=== PATIENT | female | born 1970 | race Caucasian/White ===

== ENCOUNTER 2024-02-08 12:10 | Inpatient (IN) | payer MEDICAID, SELFPAY ==
[2024-02-08 12:13] VITALS: BP 126/81; PULSE 93; RESP 16; TEMP 36.6; O2SAT 98; BMI 25.7
[2024-02-08 13:53] LABS: Absolute Lymphocyte Count 1.08 X10^3/uL (0.83-4.51); Absolute Neutrophil Count 3.7 X10^3/uL (2.0-7.7); Basophil# 0.05 X10^3/uL; Basophil% 0.9 % (0-1); Eosinophil# 0.04 X10^3/uL; Eosinophils% 0.7 % (0-5); Hematocrit 37.5 % (37-47); Hemoglobin 12.6 g/dL (12.0-15.0); Lymphocyte # 1.08 X10^3/ul (0.83-4.51); Lymphocyte % 20.1 % (19-41); Mean Corp Hgb Conc 33.6 g/dL (32-36); Mean Corpuscular Hgb 32.9 pg (27.0-32.0); Mean Corpuscular Volume 97.9 fL (81-99); Mean Platelet Vol. 10.7 fl (6.2-12.0); Monocyte# 0.52 X10^3/uL; Monocyte% 9.7 % (0-10); NRBC Flagged by Analyzer 0 % (0-5); Neutrophil # 3.67 X10^3/uL (2.7-7.7); Neutrophil % 68.2 % (47-70); Platelet Count 124 K/mm3 (150-450); RBC Distribution Width CV 13.6 % (11.6-14.6); RBC Distribution Width SD 48.5 fl (35.1-43.9); Red Blood Count 3.83 M/mm3 (4.2-5.4); White Blood Count 5.4 K/mm3 (4.4-11.0)
[2024-02-08 13:58] LABS: Internal QC Validated? YES +Cl - CLEAR BKGD; Pregnancy, Serum, hCG Quali. NEGATIVE Negative
[2024-02-08 14:11] LABS: Amphetamine Urine VISTA NEGATIVE (<1000 ng/mL); Barbiturate Urine VISTA NEGATIVE (< 200 ng/mL); Benzodiazepine Urine VISTA POSITIVE (< 200 ng/mL); Cocaine Urine VISTA NEGATIVE (< 300 ng/mL); Ecstacy Urine VISTA NEGATIVE (< 500 ng/mL); Methadone Urine VISTA NEGATIVE (< 300 ng/mL); PCP Urine VISTA NEGATIVE (< 25 ng/mL); THC Urine VISTA NEGATIVE (< 50 ng/mL); Vista UDS pH Range 6
[2024-02-08 14:16] LABS: ALB/GLOB Ratio 0.7 RATIO (0.9-2.4); AST(SGOT) 129 U/L (15-37); Alanine Aminotransfer ALT/SGPT 51 U/L (13-56); Albumin, Serum 3.4 g/dL (3.2-5.0); Alkaline Phosphatase 313 U/L (45-117); Anion Gap 10 (5-15); BUN 6 mg/dL (7-18); BUN/Creat Ratio 8.6 RATIO (10-20); Chloride 98 mmol/L (98-107); EST Glomerular Filtration Rate 93 mL/min (>60); Est Glom Filt Rate - Afr Amer 112 mL/min (>60); Globulin 4.8 g/dL (2.2-4.2); Glucose 108 mg/dL (74-106); Potassium 3.2 mmol/L (3.5-5.1); Protein, Total 8.2 g/dL (6.4-8.2); Sodium Level 134 mmol/L (136-145)
--- NOTE | 2024-02-08 14:33 | EDS_ITS ---
HPI History of Present Illness Chief Complaint: Substance Abuse Detail of Chief Complaint: Patient was accompanied from underwriting account representative from [facility] for alcohol Informant: patient and other Onset/Context/Timing Onset: Month(s) Context: Sudden Onset Timing: Continuous Quality: Patient is an alcoholic. She drinks a pint to half a gallon of vodka a day Location: Not applicable Current Severity: Severe Maximum Severity: Severe Worsened by: Nothing specific Relieved by: Nothing Associated Symptoms Associated Symptoms: Positive for no; Negative for vomiting*, diarrhea*, fever*, rash*, seizure, tremor, palpatations, change in mental status, trauma, sex for drugs* or *HIV Risk Factors:Consider testing if last test > 6 months Narrative Narrative: Patient is a 53-year-old woman. She is an alcoholic. She was recently admitted to the [facility] detox program. She did not follow-up. She was brought in by a underwriting account representative from [facility]. She is drinking 1 pint to half a gallon of vodka per day. She drank prior to arrival. She states she needs help. There is no history of trauma. Denies headache, visual, ocular auditory sym ptoms. She denies cardiac respiratory symptoms. Denies abdominal pain, black or maroon-colored stool. She denies vomiting. She denies history of pancreatitis. She denies urologic symptoms. Prior similar symptoms: Yes Recent Illness/Hospitalization: Yes PFSH PFSH Medical History Anxiety Alcohol abuse Allergy/AdvReac Type Severity Reaction Status Date / Time iodine Allergy PT UNSURE Verified 02/08/24 12:13 OF REACTION Social History Smoking Status: Current every day smoker tobacco type: cigarettes ROS ROS ED Constitutional Constitutional ED: Denies chills, fever(s), subjective or sweats Eyes Eyes: Denies blurry vision or change in vision ENT ENT ED: Denies ear pain, rhinorrhea or sore throat Cardiovascular Cardiovascular: Denies chest pain or palpitations Respiratory/Chest Respiratory/Chest: Denies cough, dyspnea or dyspnea on exertion Gastrointestinal Gastrointestinal: Denies abdominal pain, constipation, diarrhea, melena or vomiting Genitourinary Genitourinary ED: Denies dysuria or urinary frequency Musculoskeletal Musculoskeletal: Denies arthralgias, back pain, myalgias or neck pain Integumentary Denies abscess, Abrasions or rash Neurologic Neurologic: Denies headache(s), paresthesias or weakness Psychiatric Psychiatric: Reports anxiety Endocrine Endocrinology: Denies cold intolerance or heat intolerance Hematologic/Lymphatic Hematologic/Lymphatic: Denies easy bleeding or easy bruising EXAM Physical Exam Const Vital Signs: 02/08/24 12:13 Temperature 97.8 F Temperature Source Temporal Pulse Rate 93 Respiratory Rate 16 Blood Pressure 126/81 H Blood Pressure Mean 96 Pulse Ox 98 Oxygen Delivery Method Room Air Positive well nourished and well developed General Appearance ED: well developed and NAD; Negative for pallor HEENT Reports moist mucous membranes HEENT Narrative: Head is atraumatic normocephalic. Ears normal. Nares patent. Posterior pharynx is normal. atraumatic Eyes PERRL and EOMs intact bilaterally General Eye ED: Negative for pale conjunctiva or scleral icterus Neck no lymphadenopathy, supple and no JVD Lymph Lymphatic: no lymphadenopathy noted and lymphadenopathy Chest Wall inspection of chest normal and palpation of chest normal Resp normal respiratory effort and clear to auscultation bilaterally Cardio regular rate, regular rhythm, S1 normal heart sound, S2 normal heart sound and no murmurs GI soft to palpation, non-tender, non-distended and no masses Back/Spine no CVA tenderness Extremity Extremity Narrative: Lower extremity exam is unremarkable. There is no neurovascular mice. General Extremety ED: Negative for edema or tenderness General Extremity: Negative for edema Neuro oriented x3, CN's II-XII intact bilaterally and no sensory deficits noted Neuro Narrative: There is no dysmetria. There is no clonus at the ankles. There is no Babinski sign noted right or left. Maribel Coma Scale: document GCS findings Spontaneous Obeys Commands Oriented 15 Sensorium / Orientation: alert Motor Exam: strength 5/5 throughout Psych mental status grossly normal and thought process normal Psych Narrative: Patient became tearful when asked if she had been in a detox program before. She informing that she was at [facility] 2 weeks ago. Skin General Skin Exam: Negative for jaundice or pallor Lesions: no lesions Rashes: no rashes MDM MDM MDM Narrative Medical decision making narrative: Patient is an alcoholic with dependency. Will initiate ED addiction medicine protocol. Will assess CBC for H&H to rule out anemia. Competence metabolic panel to assess electrolytes, glucose, renal function and liver enzymes. Urine tox and test. Lab Data Attestation: I reviewed the patient's lab results. Lab results narrative: CBC was unremarkable. Competence metabolic panel Veals mild hyponatremia 134. Glucose is slightly elevated 108. AST is elevated 129 consistent with alcoholism. Total bili slight elevated 1.4. Tox is positive for benzodiazepines. Alcohol is 263. Labs: Laboratory Results - last 24 hr 02/08/24 02/08/24 13:42 13:43 WBC 5.4 RBC 3.83 L Hgb 12.6 Hct 37.5 MCV 97.9 MCH 32.9 H MCHC 33.6 RDW Std Deviation 48.5 H RDW Coeff of Araseli 13.6 Plt Count 124 L MPV 10.7 Immature Gran % (Auto) 0.400 Neut % (Auto) 68.2 Lymph % (Auto) 20.1 Rapides % (Auto) 9.7 Eos % (Auto) 0.7 Baso % (Auto) 0.9 Absolute Neuts (auto) 3.7 Absolute Lymphs (auto) 1.08 Nucleated RBC % 0 Sodium 134 L Potassium 3.2 L Chloride 98 Carbon Dioxide 26.0 Anion Gap 10 BUN 6 L Creatinine 0.70 Estim Creat Clear Calc 80.70 Est GFR (MDRD) Af Amer 112 Est GFR (MDRD) Non-Af 93 BUN/Creatinine Ratio 8.6 L Glucose 108 H Calcium 9.0 Total Bilirubin 1.40 H AST 129 H ALT 51 Alkaline Phosphatase 313 H Total Protein 8.2 Albumin 3.4 Globulin 4.8 H Albumin/Globulin Ratio 0.7 L Serum , Qual NEGATIVE Urine Opiates Screen NEGATIVE Urine Methadone Screen NEGATIVE Ur Barbiturates Screen NEGATIVE Ur Phencyclidine Scrn NEGATIVE Ur Amphetamines Screen NEGATIVE MDMA (Ecstasy) Screen NEGATIVE U Benzodiazepines Scrn POSITIVE H Urine Cocaine Screen NEGATIVE U Cannabinoids Screen NEGATIVE Ur Drug Screen Comment Ethyl Alcohol 263.0 Management Discussion w/another healthcare provider: Hospitalist (Dr. Howe was made aware of patient's history, physical laboratory results. She will see patient in the emergency department.) Discharge Plan Triage Chief Complaint: Substance Abuse ED Provider: Les Wagner Dx/Rx/DC Orders Clinical Impression: Alcohol dependence with acute alcoholic intoxication without complication, Elevated bilirubin, Elevated SGOT (AST) Primary Care Provider: CATRACHO FIGUEROA Referrals: CATRACHO FIGUEROA [Other] Print Language: Liberian Disposition Disposition: Acute Care Hospital [facility]
[2024-02-08 14:58] VITALS: BP 117/73; PULSE 85; RESP 12; TEMP 36.9; O2SAT 96
--- NOTE | 2024-02-08 15:05 | HP.PCM.HOS_ITS ---
HPI - General General Date of Admission: 02/08/24 Date of Service: 02/08/24 Chief Complaint: etoh detox HPI Narrative RON GOMEZ, is a 53 F with a portal vein thrombosis noncompliant with her Eliquis, GERD, tobacco use, hypertension, alcohol abuse presented to [facility] ED 02/08/2024 with a [facility] sales representative adding machines for alcohol detox. Hospitalist contacted for admission. She was in [facility] for detox and got out 2 weeks ago but started drinking again anywhere from a pint to a half a gallon of vodka a day and has been drinking since college but is drinking more heavily the past 10 to 12 years. Reports she has a lot of life stressors but is hopeful to go to [facility] and get sober. Does report she was diagnosed with a portal vein thrombosis in September and is supposed to be on Eliquis however due to bruising and a nosebleed she stopped taking this. Patient hesitant to be put on phenobarbital as she feels it will make her tired but also said she does not like how Librium makes her feel. Discussed CIWA with scoring threshold for Ativan and symptom driven coverage and she was agreeable. Patient last drink this morning and had an alcohol level 263 while in the ED, has not yet began to feel withdrawal symptoms. Had no focal complaints at this time other than feeling tired. Denies any other substance use, smokes 8 to 10 cigarettes a day but does not want a nicotine patch as it made her feel jittery before and did not want nicotine gum either. PFSH Medical History Anxiety Alcohol abuse Home Medications ?Medication ?Instructions ?Recorded ?Last Taken ?Type apixaban 5 mg tablet (Eliquis) 5 mg PO BID 02/08/24 Unknown History citalopram 20 mg tablet 20 mg PO DAILY 02/08/24 Unknown History fenofibrate nanocrystallized 145 145 mg PO DAILY 02/08/24 Unknown History mg tablet folic acid 1 mg tablet 1 mg PO DAILY 02/08/24 Unknown History gabapentin 100 mg capsule 100 mg PO QHS PRN PRN sleep 02/08/24 Unknown History lisinopril 10 mg tablet 10 mg PO DAILY 02/08/24 Unknown History omeprazole 40 mg capsule,delayed 40 mg PO DAILY 02/08/24 Unknown History release Allergy/AdvReac Type Severity Reaction Status Date / Time iodine Allergy PT UNSURE Verified 02/08/24 12:13 OF REACTION Social History Smoking Status: Current every day smoker tobacco type: cigarettes ROS ROS Narrative General: Denies fever/chills HENT: Denies headache, denies stuffy nose, denies sore throat EYES: Denies changes in vision Resp: Denies cough, denies shortness of breath Cardiac: Denies chest pain GI: Denies abdominal pain, denies changes in bowel, denies nausea/vomiting : Denies changes in urination Extremity: Denies swelling MSK: Denies weakness Neuro: Denies any numbness/tingling Heme: Denies any bleeding or bruising Skin: Denies rashes Psychiatric: Feels tired, has had a lot of stressors recently as well Vital Signs Vital Signs Vital Signs: 02/08/24 12:13 02/08/24 14:58 Temperature 97.8 F 98.4 F Temperature Source Temporal Pulse Rate 93 85 Respiratory Rate 16 12 Blood Pressure 126/81 H 117/73 Blood Pressure Mean 96 87 Pulse Ox 98 96 Oxygen Delivery Method Room Air Weight Weight: 63.957 kg Body Mass Index (BMI) 25.7 Physical Exam Narrative General: Alert, oriented, no apparent distress HEENT: Atraumatic, normocephalic Eyes: Anicteric, normal conjunctiva, extraocular movements grossly intact Neck: Supple Respiratory: Clear to auscultation bilaterally, normal respiratory effort Cardiovascular: Regular rate and rhythm GI: Soft, nontender, nondistended Extremities: No edema Musculoskeletal: Moving all extremities Neuro: No overt focal neurological deficits Skin: No rashes appreciated Psych: Superficially cooperative Results Lab / Micro Data 02/08/24 13:42 02/08/24 13:42 Labs: Laboratory Results - last 24 hr 02/08/24 13:42: WBC 5.4, RBC 3.83 L, Hgb 12.6, Hct 37.5, MCV 97.9, MCH 32.9 H, MCHC 33.6, RDW Std Deviation 48.5 H, RDW Coeff of Araseli 13.6, Plt Count 124 L, MPV 10.7, Immature Gran % (Auto) 0.400, Neut % (Auto) 68.2, Lymph % (Auto) 20.1, Real % (Auto) 9.7, Eos % (Auto) 0.7, Baso % (Auto) 0.9, Absolute Neuts (auto) 3.7, Absolute Lymphs (auto) 1.08, Nucleated RBC % 0, Sodium 134 L, Potassium 3.2 L, Chloride 98, Carbon Dioxide 26.0, Anion Gap 10, BUN 6 L, Creatinine 0.70, Estim Creat Clear Calc 80.70, Est GFR (MDRD) Af Amer 112, Est GFR (MDRD) Non-Af 93, BUN/Creatinine Ratio 8.6 L, Glucose 108 H, Calcium 9.0, Total Bilirubin 1.40 H, AST 129 H, ALT 51, Alkaline Phosphatase 313 H, Total Protein 8.2, Albumin 3.4, Globulin 4.8 H, Albumin/Globulin Ratio 0.7 L, Ethyl Alcohol 263.0 02/08/24 13:43: Serum , Qual NEGATIVE, Urine Opiates Screen NEGATIVE, Urine Methadone Screen NEGATIVE, Ur Barbiturates Screen NEGATIVE, Ur Phencyclidine Scrn NEGATIVE, Ur Amphetamines Screen NEGATIVE, MDMA (Ecstasy) Screen NEGATIVE, U Benzodiazepines Scrn POSITIVE H, Urine Cocaine Screen NEGATIVE, U Cannabinoids Screen NEGATIVE, Ur Drug Screen Comment Assessment & Plan Assessment/Plan (1) Alcohol dependence with acute alcoholic intoxication without complication: (2) Portal vein thrombosis: PLAN: Plan #Alcohol use disorder - We will begin CIWA every 4 for 24 hours, then every 6 for 24 hours, then every 12 until discharge -Patient hesitant to take phenobarb taper she reports she thinks it make her too tired, also refused Librium, was agreeable to Ativan with as needed coverage. This is reasonable given she went through detox 2 weeks ago and has only been drinking over the past week and a half or so. Currently scheduled moving forward if needed -Gabapentin 300 mg every 8 as needed -Will start Bentyl and hydroxyzine as needed as well as loperamide as needed -Trazodone 100 mg p.o. nightly as needed sleep -Begin thiamine and folic acid supplementation -Zofran as needed for nausea -Case management consult to assist with discharge planning -EtOH 263, UDS positive for benzos but patient denies any substance use other than alcohol # History of portal vein thrombosis -Diagnosed in September -Stopping Eliquis week ago as she did not like the bruising -Discussed that this will be restarted #Tobacco use -Advise cessation -Refused nicotine replacement #GERD -Continue PPI # Hypokalemia -Replace -Check in the a.m. # Elevated liver enzymes -Likely secondary due to alcohol -Advise cessation -Repeat in the a.m. #DVT ppx: Linn Howe MD Time spent in the patient's overall evaluation,decision-making process, review of diagnostic data, adjustment of management, discussion with other providers, nursing nursing and ancillary staff involved in patient's care documentation, 38 minutes Charges/Coding Visit Charges Inpatient E&M: 97349 Init Hosp L2
[2024-02-08 16:02] VITALS: BMI 26.5
[2024-02-08 16:19] LABS: Internal QC Validated? YES +Cl - CLEAR BKGD; Pregnancy, Urine Negative Negative
[2024-02-08 16:51] VITALS: BP 125/78; PULSE 86; RESP 18; TEMP 36.8; O2SAT 98
--- NOTE | 2024-02-08 17:27 | NURSING ---
Pt very Agitated with her Saline Lock. Pt wants it out b/c it hurts. Pt was standing at her doorway demanding the legal secretary receptionist to take it out. This RN into see pt and educated importance of why we should leave the Saline Lock in. take it out, I've never had a seizure with detox and I don't need it Pt Stated she would rather get stuck again if needed. Pt asking What medication I'm I getting for this? referring to her alcohol withdrawal. The Doctor said she was going to order something but not phenobarbital as it makes me sleepy so what did she order. Pt informed that Ativan po ordered. I don't like to take meds. Pt at first did not want Ativan but then agreed. Pt started crying and stated I don't want to be here. I'm only here so I can go to [facility]. Pt stated she was just in detox at [facility] 2 weeks ago and already started drinking again. Pt also talked about her room mate and how she has only lived at her house since this past December but I don't think she wants me there anymore. Crying began again. Pt talked about how she does not take and has not taken her Antidepressent in a long time.
[2024-02-08] MEDS: LORazepam 1 MG Tablet PO ×2 (17:54→21:14)
[2024-02-08] MEDS: Potassium Chloride Oral Tablet 20 MEQ 40 MEQ PO (17:54)
[2024-02-08] MEDS: APIXABAN 5 MG TABLET PO (21:14)
[2024-02-08] MEDS: Gabapentin 300 MG Capsule PO (21:14)
[2024-02-08 21:15] VITALS: BP 131/73; PULSE 86; RESP 17; TEMP 36.6; O2SAT 95
[2024-02-09 02:31] VITALS: BP 130/75; PULSE 85; RESP 16; TEMP 36.6; O2SAT 96
[2024-02-09] MEDS: Acetaminophen 325 MG Tablet 650 MG PO ×2 (02:39→21:27)
[2024-02-09 06:37] VITALS: BP 123/71; PULSE 69; RESP 16; TEMP 36.8; O2SAT 97
[2024-02-09 09:01] VITALS: BP 148/89; PULSE 72; RESP 18; TEMP 36.6; O2SAT 98
[2024-02-09] MEDS: APIXABAN 5 MG TABLET PO ×2 (09:07→21:28)
[2024-02-09] MEDS: Thiamine Hydrochloride 100 MG Tablet PO (09:11)
[2024-02-09] MEDS: Pantoprazole Sodium 40 MG Tablet PO (09:11)
[2024-02-09] MEDS: LORazepam 1 MG Tablet PO (09:11)
[2024-02-09] MEDS: Lisinopril 10 MG Tablet PO (09:11)
[2024-02-09] MEDS: Folic Acid 1 MG Tablet PO (09:11)
[2024-02-09 10:54] LABS: ALB/GLOB Ratio 0.7 RATIO (0.9-2.4); AST(SGOT) 113 U/L (15-37); Alanine Aminotransfer ALT/SGPT 43 U/L (13-56); Albumin, Serum 2.9 g/dL (3.2-5.0); Alkaline Phosphatase 262 U/L (45-117); Anion Gap 9 (5-15); BUN 5 mg/dL (7-18); BUN/Creat Ratio 7.8 RATIO (10-20); Calcium,Total 9.4 mg/dL (8.5-10.1); Chloride 100 mmol/L (98-107); Creatinine, Serum 0.64 mg/dL (0.55-1.02); EST Glomerular Filtration Rate 103 mL/min (>60); Est Glom Filt Rate - Afr Amer 125 mL/min (>60); Globulin 4.4 g/dL (2.2-4.2); Glucose 86 mg/dL (74-106); Magnesium 1.6 mg/dL (1.6-2.6); Potassium 3.8 mmol/L (3.5-5.1); Protein, Total 7.3 g/dL (6.4-8.2); Sodium Level 137 mmol/L (136-145)
--- NOTE | 2024-02-09 11:18 | PCM.PN.HOSP ---
Subjective Subjective Doing well, no issues overnight, CIWA score 4 Objective Data Objective Data Vital Signs: Vital Signs Temp Pulse Resp BP Pulse Ox O2 Del Method 97.9 F 72 18 148/89 H 98 Room Air 02/09/24 09:01 02/09/24 09:01 02/09/24 09:01 02/09/24 09:01 02/09/24 09:01 02/09/24 09:01 Oxygen Delivery Method Room Air Weight: 144 lb 3 oz Body Mass Index (BMI) 26.5 Intake & Output: Intake and Output for Last 24 Hours 02/08/24 02/09/24 02/10/24 03:59 03:59 03:59 Intake Total 400 / 400 Balance 400 / 400 Lab / Micro Data 02/08/24 13:42 02/09/24 06:10 Labs: Laboratory Results - last 24 hr 02/08/24 13:42: WBC 5.4, RBC 3.83 L, Hgb 12.6, Hct 37.5, MCV 97.9, MCH 32.9 H, MCHC 33.6, RDW Std Deviation 48.5 H, RDW Coeff of Araseli 13.6, Plt Count 124 L, MPV 10.7, Immature Gran % (Auto) 0.400, Neut % (Auto) 68.2, Lymph % (Auto) 20.1, Stewart % (Auto) 9.7, Eos % (Auto) 0.7, Baso % (Auto) 0.9, Absolute Neuts (auto) 3.7, Absolute Lymphs (auto) 1.08, Nucleated RBC % 0, Sodium 134 L, Potassium 3.2 L, Chloride 98, Carbon Dioxide 26.0, Anion Gap 10, BUN 6 L, Creatinine 0.70, Estim Creat Clear Calc 80.70, Est GFR (MDRD) Af Amer 112, Est GFR (MDRD) Non-Af 93, BUN/Creatinine Ratio 8.6 L, Glucose 108 H, Calcium 9.0, Total Bilirubin 1.40 H, AST 129 H, ALT 51, Alkaline Phosphatase 313 H, Total Protein 8.2, Albumin 3.4, Globulin 4.8 H, Albumin/Globulin Ratio 0.7 L, Ethyl Alcohol 263.0 02/08/24 13:43: Serum , Qual NEGATIVE, Urine Opiates Screen NEGATIVE, Urine Methadone Screen NEGATIVE, Ur Barbiturates Screen NEGATIVE, Ur Phencyclidine Scrn NEGATIVE, Ur Amphetamines Screen NEGATIVE, MDMA (Ecstasy) Screen NEGATIVE, U Benzodiazepines Scrn POSITIVE H, Urine Cocaine Screen NEGATIVE, U Cannabinoids Screen NEGATIVE, Ur Drug Screen Comment 02/08/24 15:55: Urine Test Negative 02/09/24 06:10: Sodium 137, Potassium 3.8, Chloride 100, Carbon Dioxide 28.0, Anion Gap 9, BUN 5 L, Creatinine 0.64, Estim Creat Clear Calc 87.00, Est GFR (MDRD) Af Amer 125, Est GFR (MDRD) Non-Af 103, BUN/Creatinine Ratio 7.8 L, Glucose 86, Calcium 9.4, Magnesium 1.6, Total Bilirubin 2.20 H, AST 113 H, ALT 43, Alkaline Phosphatase 262 H, Total Protein 7.3, Albumin 2.9 L, Globulin 4.4 H, Albumin/Globulin Ratio 0.7 L Physical Exam Narrative General: Alert, Oriented x3, Cooperative, No apparent distress HEENT: Atraumatic, PERRLA, EOMI, Normocephalic Oral: Moist Mucosa Neck: Supple, No JVD Lungs: Diminished, Normal air movement, No rhonchi, No wheeze, No rales Cardiovascular: Regular rate, Regular Rhythm, Normal S1, Normal S2, No murmurs Abdomen: Soft, Non Tender, Non-Distended, No Hepato-splenomegaly Extremities: No edema, Capillary Refill Less than 3 Seconds Skin: No rashes, No breakdown Musculoskeletal: No Tenderness to Palpation of Joints or Extremities Neurological: No focal neurological deficits, Motor Exam 5/5 strength throughout, Sensory exam intact to light touch and pain Psych/Mental Status: Normal Affect, Appropriate Assessment & Plan Assessment/Plan (1) Alcohol dependence with acute alcoholic intoxication without complication: (2) Portal vein thrombosis: PLAN: Plan 1. Acute alcohol withdrawal/tobacco abuse/elevated LFTs ? She is hesitant to take the phenobarb taper so she was started on Ativan as needed ? She will need to follow-up with [facility] she mentioned potentially going inpatient for 60 days ? Discussed tobacco cessation, she declined nicotine patch ? LFTs are elevated due to the alcoholism 2. Has a history of portal vein thrombosis ? She stopped Eliquis because she did not like the bruising ? This has been restarted 3. GERD ? Stable ? Continue with PPI DVT: Eliquis Charges/Coding Visit Charges Inpatient E&M: 37648 Subs Hosp L2
--- NOTE | 2024-02-09 12:03 | CASEMGMT ---
Social Work- SW met with pt to conduct SDOH assessment. Pt reports she previously lived with a 72 yo woman [address] [place] [address]house, although there is some concern about returning d/t her drinkng. Pt reports that she has her own car and drives. Pt states that she worked at [employer] in [employer] for a year prior to working a [employer] doing [employer] most recently. Pt states that she doesn't want to work and inquired about SW providing disability info. Pt states that she has AA support, support from cousins, and friends. Pt reports that her mother 3 years ago and she feels that she has not grieved. Pt plans to d/c to [facility] program. SW provided resources for corporate paralegal, disability, and grief support. LANCE Calzada
[2024-02-09 14:21] VITALS: BP 135/82; PULSE 75; RESP 18; TEMP 36.6; O2SAT 98
[2024-02-09] MEDS: hydrOXYzine PAM 25 MG Capsule 50 MG PO (15:07)
[2024-02-09 18:00] VITALS: BP 132/76; PULSE 78; RESP 18; TEMP 36.6
[2024-02-09 21:16] VITALS: BP 134/77; PULSE 77; RESP 16; TEMP 37.3; O2SAT 97
[2024-02-09] MEDS: Gabapentin 300 MG Capsule PO (21:27)
[2024-02-10 03:26] VITALS: BP 113/70; PULSE 68; RESP 16; TEMP 36.7; O2SAT 95
[2024-02-10 08:58] VITALS: BP 128/83; PULSE 80; RESP 18; TEMP 36.6; O2SAT 100
[2024-02-10] MEDS: APIXABAN 5 MG TABLET PO (09:01)
[2024-02-10] MEDS: Folic Acid 1 MG Tablet PO (09:01)
[2024-02-10] MEDS: Thiamine Hydrochloride 100 MG Tablet PO (09:01)
[2024-02-10] MEDS: Pantoprazole Sodium 40 MG Tablet PO (09:01)
[2024-02-10] MEDS: Lisinopril 10 MG Tablet PO (09:01)
[2024-02-10] MEDS: Acetaminophen 325 MG Tablet 650 MG PO (09:04)
--- NOTE | 2024-02-10 09:30 | DCINST_ITS ---
Discharge Instructions Diet Discharge Diet: Low fat / Low cholesterol Activity Discharge Activity: Return to Normal Activity Dressing / Incision Call your doctor if you observe: Fever of 101 or Higher, Shortness of breath, Dizziness, Fainting spells, Swelling in the ankles, Chest pain and Increased palpitations (irregular heartbeat) Follow Up Care Test Results: Test results from this visit will be discussed in further detail at your follow- up appointment, if applicable. Discharge Plan Admission Admit Date/Time: 02/08/24 15:05 Attending Provider: Moustapha Hollis Primary Care Provider: CATRACHO FIGUEROA Consulting Providers: Dixie Howe Discharge Orders/Prescriptions Prescriptions: Continued citalopram 20 mg tablet 20 mg PO DAILY folic acid 1 mg tablet 1 mg PO DAILY gabapentin 100 mg capsule 100 mg PO QHS PRN PRN (Reason: sleep) fenofibrate nanocrystallized 145 mg tablet 145 mg PO DAILY Eliquis 5 mg tablet 5 mg PO BID omeprazole 40 mg capsule,delayed release(DR/EC) 40 mg PO DAILY lisinopril 10 mg tablet 10 mg PO DAILY Referrals / Follow Up: CATRACHO FIGUEROA [Other] CATRACHO FIGUEROA [Other] Disposition Disposition (needs filled in before D/C Order can be placed): Inpatient Rehab Unit/Facility
[2024-02-10] MEDS: Sodium Chloride 0.65% 1 SPRAY SPRAY.BTL NASAL (10:53)
--- NOTE | 2024-02-10 18:14 | DS.PCM_ITS ---
Providers Date of Admission: 02/08/24 Primary Care Physician: CATRACHO FIGUEROA Reason For Visit: ALCOHOL DEPENDENCY W/ ACUTE INTOXICATION Diagnosis Discharge Diagnosis (1) Alcohol dependence with acute alcoholic intoxication without complication: Status: Acute Code(s): F10.220 - Alcohol dependence with intoxication, uncomplicated (2) Portal vein thrombosis: Status: Acute Code(s): I81 - Portal vein thrombosis Medications at Discharge Home Medications apixaban 5 mg tablet (Eliquis) 5 mg PO BID 02/08/24 citalopram 20 mg tablet 20 mg PO DAILY 02/08/24 fenofibrate nanocrystallized 145 mg tablet 145 mg PO DAILY 02/08/24 folic acid 1 mg tablet 1 mg PO DAILY 02/08/24 gabapentin 100 mg capsule 100 mg PO QHS PRN PRN sleep 02/08/24 lisinopril 10 mg tablet 10 mg PO DAILY 02/08/24 omeprazole 40 mg capsule,delayed release 40 mg PO DAILY 02/08/24 Hospital Course Operations None Procedures None Summary of Care Provided Minutes Spent on Discharge: 35 Hospital Course: Per HPI: RON GOMEZ, is a 53 F with a portal vein thrombosis noncompliant with her Eliquis, GERD, tobacco use, hypertension, alcohol abuse presented to 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 Hospitalist contacted for admission. She was in [facility] for detox and got out 2 weeks ago but started drinking again anywhere from a pint to a half a gallon of vodka a day and has been drinking since college but is drinking more heavily the past 10 to 12 years. Reports she has a lot of life stressors but is hopeful to go to [facility] and get sober. Does report she was diagnosed with a portal vein thrombosis in September and is supposed to be on Eliquis however due to bruising and a nosebleed she stopped taking this. Patient hesitant to be put on phenobarbital as she feels it will make her tired but also said she does not like how Librium makes her feel. Discussed CIWA with scoring threshold for Ativan and symptom driven coverage and she was agreeable. Patient last drink this morning and had an alcohol level 263 while in the ED, has not yet began to feel withdrawal symptoms. Had no focal complaints at this time other than feeling tired. Denies any other substance use, smokes 8 to 10 cigarettes a day but does not want a nicotine patch as it made her feel jittery before and did not want nicotine gum either. Hospital Course: 1. Acute alcohol withdrawal/tobacco abuse/elevated LFTs?53-year-old female presented to the hospital requesting detox from alcohol. She has had a lot of restrictions and did not want to take phenobarbital so was started on as needed Ativan. She had very good control of her symptoms while here and had discussed with 180 about going to inpatient rehab. She did have some elevated LFTs that did improve and is are likely secondary to her portal vein thrombosis and her alcoholism. We did restart her Eliquis and discussed with her the reason why, she did have a little bit of a nosebleed today but she was started on a nasal saline spray to help. The rehab facility did not accept her today and she was discharged for continued detox and care. 2. Portal vein thrombosis, GERD, essential hypertension are chronic medical conditions which complicate her care. Her home medications were continued where appropriate Physical Exam Narrative General: Alert, Oriented x3, Cooperative, No apparent distress HEENT: Atraumatic, PERRLA, EOMI, Normocephalic Oral: Moist Mucosa Neck: Supple, No JVD Lungs: Diminished, Normal air movement, No rhonchi, No wheeze, No rales Cardiovascular: Regular rate, Regular Rhythm, Normal S1, Normal S2, No murmurs Abdomen: Soft, Non Tender, Non-Distended, No Hepato-splenomegaly Extremities: No edema, Capillary Refill Less than 3 Seconds Skin: No rashes, No breakdown Musculoskeletal: No Tenderness to Palpation of Joints or Extremities Neurological: No focal neurological deficits, Motor Exam 5/5 strength throughout, Sensory exam intact to light touch and pain Psych/Mental Status: Normal Affect, Appropriate Weight / BMI Weight Weight: 144 lb 3 oz Body Mass Index (BMI) 26.5 ABG / Lab / Microbiology Data 02/08/24 13:42 02/09/24 06:10 D/C Instructions Discharge Diet: Low fat / Low cholesterol Call your doctor if you observe: Fever of 101 or Higher, Shortness of breath, Dizziness, Fainting spells, Swelling in the ankles, Chest pain and Increased palpitations (irregular heartbeat) Meaningful Use Info Meaningful Use Meaningful Use Diagnoses (Choose all that apply): None applicable Ischemic Stroke Statin Dosing Therapy Reference: STATIN DOSE THERAPY REFERENCE: * Patients > 75 years receive moderate or high dose statin therapy. * Patients 75 years or YOUNGER should receive HIGH intensity statin dose unless contraindicated. You will be required to document reason for non-treatment if statin daily dose does not meet guidelines. HIGH DOSE STATIN THERAPY DAILY Atorvastatin > than or = to 40 mg Rosuvastatin > than or = to 20 mg Amlodipine + Atorvastatin > than or = to 2.5/40 mg Ezetimibe + Simvastatin 10/80 mg Simvastatin 80mg Discharge Plan Admission Admit Date/Time: 02/08/24 15:05 Attending Provider: Moustapha Hollis Primary Care Provider: CATRACHO FIGUEROA Consulting Providers: Dixie Howe Discharge Orders/Prescriptions Prescriptions: Continued citalopram 20 mg tablet 20 mg PO DAILY folic acid 1 mg tablet 1 mg PO DAILY gabapentin 100 mg capsule 100 mg PO QHS PRN PRN (Reason: sleep) fenofibrate nanocrystallized 145 mg tablet 145 mg PO DAILY Eliquis 5 mg tablet 5 mg PO BID omeprazole 40 mg capsule,delayed release(DR/EC) 40 mg PO DAILY lisinopril 10 mg tablet 10 mg PO DAILY Referrals / Follow Up: CATRACHO FIGUEROA [Other] CATRACHO FIGUEROA [Other] Disposition Disposition (needs filled in before D/C Order can be placed): Inpatient Rehab Unit/Facility Charges/Coding Visit Charges Inpatient E&M: 39021 Disch Hosp >30min
== END 2024-02-10 12:00 | DRG 775 ==
LOC: ED 14:40 → MS3 16:19
PROVIDERS: Admitting Provider Internal Medicine; Emergency Provider Emergency Medicine; Visit Provider Family Medicine
DX: F10.239 Alcohol dependence with withdrawal, unspecified (principal); I81 Portal vein thrombosis; I10 Essential (primary) hypertension; F10.229 Alcohol dependence with intoxication, unspecified; F17.210 Nicotine dependence, cigarettes, uncomplicated; K21.9 Gastro-esophageal reflux disease without esophagitis; F41.9 Anxiety disorder, unspecified; Z79.899 Other long term (current) drug therapy; Z79.01 Long term (current) use of anticoagulants; Y90.8 Blood alcohol level of 240 mg/100 ml or more
CPT/HCPCS: 36415; 80053; 80307; 81025; 82077; 83735; 84703; 85025; 99284; 99406

== ENCOUNTER → 2024-03-14 | Outpatient (CLI) | payer MEDICAID, SELFPAY ==
--- NOTE | 2024-03-14 07:03 | MRI_ITS ---
MRI Abdomen w/ and w/out contrast 03/14/2024 8:03 AM COMPARISON: 11/25/2023 CLINICAL HISTORY: LIVER LESION TECHNIQUE: Multiplanar T1 and T2 weighted, diffusion and dynamic post-gadolinium images were obtained through the abdomen before and after administration of 13 cc of IV Clariscan. FINDINGS: Liver: Slightly nodular contour. There is heterogeneous perfusion of the liver on arterial phase. The portal vein appears patent. There is recanalization of the umbilical vein. There is a 5 mm T2 hyperintense lesion in the hepatic dome along the periphery. This lesion is not enhancing on postcontrast images which is compatible with simple cyst. Gallbladder: Unremarkable Pancreas: Unremarkable Spleen: Mildly enlarged. Adrenal Glands: Unremarkable Kidneys: Unremarkable GI Tract: Gastroesophageal varices. Lymphadenopathy: Absent Ascites: Absent Bones: No suspicious lesions MRI/MRI Abd WITH and W/O Contrast IMPRESSION: Cirrhotic liver with portal hypertension and no suspicious T2 hyperintense lesions. Difficult to assess for arterial hyperenhancement due to altered perfusion seen on arterial phase postcontrast images. Recommend continued follow-up multiphase MR Abdomen w/ and w/out contrast in 3-4 months. Electronically Signed: Stephen Jaimes MD at 0:32 EDT ,
== END | disposition home or self-care (01) ==
LOC: MRI 06:58
PROVIDERS: Referring Provider Internal Medicine Gastroenterology; Visit Provider Internal Medicine Gastroenterology
DX: K76.9 Liver disease, unspecified (principal)
CPT/HCPCS: 74183; A9575; A4216

== ENCOUNTER → 2024-03-28 | Outpatient (CLI) | payer MEDICAID, SELFPAY ==
[2024-03-28 13:48] LABS: Absolute Lymphocyte Count 1.13 X10^3/uL (0.83-4.51); Absolute Neutrophil Count 5.4 X10^3/uL (2.0-7.7); Basophil# 0.05 X10^3/uL; Basophil% 0.7 % (0-1); Eosinophil# 0.08 X10^3/uL; Eosinophils% 1.1 % (0-5); Hematocrit 35.7 % (37-47); Hemoglobin 11.7 g/dL (12.0-15.0); Lymphocyte # 1.13 X10^3/ul (0.83-4.51); Lymphocyte % 15.5 % (19-41); Mean Corp Hgb Conc 32.8 g/dL (32-36); Mean Corpuscular Hgb 32.1 pg (27.0-32.0); Mean Corpuscular Volume 98.1 fL (81-99); Mean Platelet Vol. 11.5 fl (6.2-12.0); Monocyte# 0.57 X10^3/uL; Monocyte% 7.8 % (0-10); NRBC Flagged by Analyzer 0 % (0-5); Neutrophil # 5.41 X10^3/uL (2.7-7.7); Neutrophil % 74.4 % (47-70); Platelet Count 132 K/mm3 (150-450); RBC Distribution Width SD 46.5 fl (35.1-43.9); Red Blood Count 3.64 M/mm3 (4.2-5.4); White Blood Count 7.3 K/mm3 (4.4-11.0)
[2024-03-28 13:54] LABS: International Normalized Ratio 1.3; Prothrombin Time (Protime)PT. 15.8 SECONDS (11.7-14.9)
[2024-03-28 13:55] LABS: Partial Thromboplast Time 38.9 Seconds (24.1-36.2)
[2024-03-28 14:52] LABS: ALB/GLOB Ratio 0.8 RATIO (0.9-2.4); AST(SGOT) 60 U/L (15-37); Alanine Aminotransfer ALT/SGPT 31 U/L (13-56); Albumin, Serum 3.5 g/dL (3.2-5.0); Alkaline Phosphatase 135 U/L (45-117); Anion Gap 7 (5-15); BUN 6 mg/dL (7-18); BUN/Creat Ratio 7.3 RATIO (10-20); Calcium,Total 9.7 mg/dL (8.5-10.1); Chloride 101 mmol/L (98-107); Creatinine, Serum 0.83 mg/dL (0.55-1.02); EST Glomerular Filtration Rate 77 mL/min (>60); Est Glom Filt Rate - Afr Amer 93 mL/min (>60); Ferritin 103 ng/mL (8-252); Globulin 4.6 g/dL (2.2-4.2); Glucose 142 mg/dL (74-106); Iron 89 ug/dL (50-170); Iron Binding Capacity,Total 281 ug/dL (250-450); PERCENT IRON SATURATION 31.7 % (15.0-55.0); Potassium 3.3 mmol/L (3.5-5.1); Protein, Total 8.1 g/dL (6.4-8.2); Sodium Level 137 mmol/L (136-145)
[2024-03-29 08:13] LABS: AFP, Tumor Marker 3.6 ng/mL (0.0-9.2)
== END | disposition home or self-care (01) ==
PROVIDERS: Referring Provider Internal Medicine Gastroenterology; Visit Provider Family Medicine
DX: E83.119 Hemochromatosis, unspecified (principal)
CPT/HCPCS: 36415; 80053; 82105; 82728; 82746; 83540; 83550; 85025; 85610; 85730